=== PATIENT | female | born 1955 | race Two or more races ===

== ENCOUNTER 2017-08-12 12:14 | Emergency (ER) | payer OTHER ==
[~2017-08-12] VITALS: Ht 152.4 cm; Wt 56.7 kg
[2017-08-12 12:24] VITALS: BP 119/76
[2017-08-12] MEDS ORDERED: Norco 5mg/325mg tab ORAL ONE (12:45)
--- NOTE | 2017-08-12 14:06 | Emergency Room Report ---
History of Present Illness General Chief Complaint: Pain Source: Patient (Julissa Ash) Present Illness HPI 62-year-old female presents emergency department complaining of localized 10 out of 10 in severity pain, tenderness to the left wrist and left hip/buttock status post mechanical slip and fall yesterday at work. Patient states that she fell on outstretched hand. Patient denies previous injury to the affected extremities. Patient denies hitting her head or loss of consciousness. Patient denies neck or back pain. Denies numbness tingling or loss of sensation or gross motor movements of the extremities, incontinence of bowel or bladder. Denies CP, Palpitations, LOC, AMS, dizziness, Changes in Vision, Sensation, paresthesias, or a sudden severe headache. (Julissa Ash) Allergies: Coded Allergies: SULFA (SULFONAMIDE ANTIBIOTICS) (Verified Allergy, Unknown, 08/12/17) Patient History Past Medical History: see triage record Past Surgical History: none Pertinent Family History: none Now: No Reviewed Nursing Documentation: PMH: Agreed, PSxH: Agreed (Julissa Ash) Nursing Documentation-PMH Past Medical History: No Stated History (Julissa Ash) Review of Systems All Other Systems: negative except mentioned in HPI (Julissa Ash) Physical Exam Vital Signs Date Time Temp Pulse Resp B/P (MAP) Pulse Ox O2 Delivery O2 Flow Rate FiO2 08/12/17 12:22 98.1 75 20 119/76 99 Room Air Sp02 EP Interpretation: reviewed, normal General Appearance: no apparent distress, alert, GCS 15, non-toxic Head: normocephalic, atraumatic Eyes: bilateral eye normal inspection, bilateral eye PERRL ENT: hearing grossly normal, normal voice Neck: full range of motion Respiratory: lungs clear, normal breath sounds, speaking full sentences Cardiovascular #1: regular rate, rhythm, no edema, normal capillary refill Gastrointestinal: non tender, soft Rectal: deferred Genitourinary: normal inspection, no CVA tenderness Musculoskeletal: back normal, gait/station normal, normal range of motion, tender - TTp to medial left wrist, no obvious deformity, FROM, no snuff box tenderness. TTP to left glute, no echymosis,FROM, ambulatory. Neurologic: alert, oriented x3, responsive, motor strength/tone normal, sensory intact, speech normal Skin: normal color, no rash, warm/dry, well hydrated (Julissa Ash) Medical Decision Making EUN Attludmila Krause is my supervising Physician whom patient management has been discussed with. (Julissa Ash) Diagnostic Impression: Primary Impression: Left wrist sprain Qualified Codes: S63.502A - Unspecified sprain of left wrist, initial encounter Additional Impression: Contusion of left hip Qualified Codes: S70.02XA - Contusion of left hip, initial encounter ER Course 62-year-old female presents emergency department complaining of localized 10 out of 10 in severity pain, tenderness to the left wrist and left hip/buttock status post mechanical slip and fall yesterday at work. Patient states that she fell on outstretched hand. Patient denies previous injury to the affected extremities. Patient denies hitting her head or loss of consciousness. Patient denies neck or back pain. Denies numbness tingling or loss of sensation or gross motor movements of the extremities, incontinence of bowel or bladder. Denies CP, Palpitations, LOC, AMS, dizziness, Changes in Vision, Sensation, paresthesias, or a sudden severe headache. Ddx considered but are not limited to Fracture, dislocation, contusion, Sprain/ Strain/Spasm. Vital signs: are WNL, pt. is afebrile H&PE are most consistent with musculoskeletal injury will perform imaging to r/ o fractures/dislocations. ORDERS: - X-ray Left wrist 3 views - negative for fx, Dislocation, or significant soft tissue injury, per preliminary read in ED, and signed by EUN Ash , my supervising physician has reviewed, and agrees with my interpretation. - X-ray Left Hip 2 views - negative for fx, Dislocation, or significant soft tissue injury, per preliminary read in ED, and signed by EUN Ash , my supervising physician has reviewed, and agrees with my interpretation. ED INTERVENTIONS: -[place] PO - Left wrist Splint applied by clinical dental technician. Pt. remains neurovascularly intact. DISCHARGE: At this time pt. is stable for d/c to home. Will provide printed patient care instructions, and any necessary prescriptions. Care plan and follow up instructions have been discussed with the patient prior to discharge. (Julissa Ash) ER Course I have reviewed the PA's interpretation of Xray results and agree with findings. (Belem Krause M.D.) Other X-Ray Diagnostic Results Other X-Ray Diagnostic Results #1: X-Ray ordered: left wrist # of Views/Limited Vs Complete: 3 View Indication: Pain EP Interpretation: Yes PA Xray: Interpretation reviewed, by supervising MD, and agrees with findings. Interpretation: no dislocation, no soft tissue swelling, no fractures Impression: No acute disease Electronically Signed by: Julissa Ash PA-C Other X-Ray Diagnostic Results #2: X-Ray ordered: Left Hip # of Views/Limited Vs Complete: 2 View Indication: Pain EP Interpretation: Yes PA Xray: Interpretation reviewed, by supervising MD, and agrees with findings. Interpretation: no dislocation, no soft tissue swelling, no fractures Impression: No acute disease Electronically Signed by: Julissa Ash PA-C ([email or web address]) Last Vital Signs Date Time Temp Pulse Resp B/P (MAP) Pulse Ox O2 Delivery O2 Flow Rate FiO2 08/12/17 12:24 98.1 20 119/76 99 Room Air 08/12/17 12:22 75 (Julissa Ash P.ARaine) Disposition: HOME, SELF-CARE Condition: Stable Scripts Methocarbamol* (ROBAXIN*) 500 Mg Tablet 500 MG PO QID for 7 Days, #28 TAB 0 Refills Prov: Julissa Ash P.A. 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 Return to Full Activity: Aug 20, 2017 Patient Instructions: Wrist Sprain Additional Instructions: Take medications as directed. Follow up with a Primary Care Provider in 3-5 days, even if your symptoms have resolved. --Please review list of primary care clinics, if you do not already have a primary care provider Return sooner to ED if new symptoms occur, or current symptoms become worse. - Please note that this Emergency Department Report was dictated using [employer] mixer technology software, occasionally this can lead to erroneous entry secondary to interpretation by the dictation equipment. Julissa Ash Aug 12, 2017 14:06 Belem Krause M.D. Aug 13, 2017 07:01
[2017-08-12] MEDS ORDERED: IBUPROFEN600 MG ORAL (14:11)
[2017-08-12] MEDS ORDERED: ROBAXIN500 MG PO (14:11)
[2017-08-12 14:23] VITALS: BP 119/76
--- NOTE | 2017-08-13 08:46 | Diagnostic Imaging Report ---
Indication: Pain Technique: XRAY Wrist Complete L Comparison: None Findings: The bones appear demineralized. There is no acute fracture or dislocation. There may be some mild joint space narrowing between some carpal-metacarpal articulations, however this may be artifactually exaggerated due to positioning. No focal soft tissue abnormality is seen. No radiopaque foreign body identified. Impression: No acute fracture or dislocation.
--- NOTE | 2017-08-13 09:23 | Diagnostic Imaging Report ---
Indication: Pain Technique: XRAY Hip Routine 2v+ L Comparison: None Findings: There is no acute fracture or dislocation. The left hip joint is intact. Symphysis pubis and left sacroiliac joint appear within normal limits. Bowel gas pattern is unremarkable. Impression: No acute fracture or dislocation.
== END 2017-08-12 14:23 | disposition home or self-care (01) ==
LOC: EMR 12:51
DX: S63.502A Unspecified sprain of left wrist, initial encounter (principal); S70.02XA Contusion of left hip, initial encounter; M25.532 Pain in left wrist; M25.552 Pain in left hip; Z91.09 Other allergy status, other than to drugs and biological substances; W01.0XXA Fall on same level from slipping, tripping and stumbling without subsequent striking against object, initial encounter; Y92.89 Other specified places as the place of occurrence of the external cause
CPT/HCPCS: 73502; 99284